=== PATIENT | male | born 2000 | race Caucasian/White ===

== ENCOUNTER 2021-01-22 21:54 | Emergency (ER) | payer SELFPAY ==
--- NOTE | 2021-01-22 22:43 | EDM.PDOC ---
ED HPI GENERAL MEDICAL PROBLEM - General Chief Complaint: Gastrointestinal Problem Stated Complaint: N/V Time Seen by Provider: 01/22/21 22:30 Source of Information: Reports: Patient - History of Present Illness INITIAL COMMENTS - FREE TEXT/NARRATIVE: 20-year-old gentleman came to the emergency department due to a several hour history of nausea, vomiting, abdominal pain. He states that he was in his no rmal state of health yesterday and had no complaints. He does not know of any sick contacts or any reason why he would have his nausea and vomiting. Patient is not vaccinated against COVID-19. Patient was found to have a mild increase in temperature at 99.7 degrees on admission/initial vitals to the emergency department. He has not tried anything in particular to try to alleviate his symptoms. He denies cough, congestion, chest pain, shortness of breath, change in bowel or bladder habits. - Related Data Allergies Allergy/AdvReac Type Severity Reaction Status Date / Time No Known Allergies Allergy Verified 01/22/21 22:12 Past Medical History Musculoskeletal History: Reports: Fracture Other Musculoskeletal History: hx fx R wrist Neurological History: Reports: Concussion Psychiatric History: Reports: ADHD, Bipolar Social & Family History - Family History Family Medical History: No Pertinent Family History - Tobacco Use Tobacco Use Status *Q: Current Every Day Tobacco User Years of Tobacco use: 1 Packs/Tins Daily: 0.1 - Caffeine Use Caffeine Use: Reports: Energy Drinks, Soda - Recreational Drug Use Recreational Drug Use: No ED ROS GENERAL - Review of Systems Review Of Systems: See Below Constitutional: Reports: Weakness, Fatigue HEENT: Reports: No Symptoms Respiratory: Reports: No Symptoms Cardiovascular: Reports: No Symptoms Endocrine: Reports: No Symptoms GI/Abdominal: Reports: Abdominal Pain, Nausea, Vomiting : Reports: No Symptoms Musculoskeletal: Reports: Joint Pain, Muscle Pain Skin: Reports: No Symptoms Neurological: Reports: Weakness Psychiatric: Reports: No Symptoms Hematologic/Lymphatic: Reports: No Symptoms Immunologic: Reports: No Symptoms ED EXAM, GI/ABD - Physical Exam Exam: See Below Exam Limited By: Intoxication General Appearance: Alert, No Apparent Distress Throat/Mouth: Normal Oropharynx Head: Atraumatic, Normocephalic Neck: Lymphadenopathy (R). No: Lymphadenopathy (L) Respiratory/Chest: No Respiratory Distress, Lungs Clear Cardiovascular: Regular Rate, Rhythm GI/Abdominal Exam: Normal Bowel Sounds, Soft, Non-Tender Back Exam: Normal Inspection Extremities: Normal Inspection Neurological: Alert, Oriented, CN II-XII Intact, Normal Cognition, Normal Gait Psychiatric: Anxious Skin Exam: Warm, Dry Course - Vital Signs Text/Narrative:: Review of lab work shows no leukocytosis, no electrolyte abnormalities, Covid and influenza are negative. Last Recorded V/S: Last Vital Signs Temp 37.7 C 01/22/21 22:09 Pulse 92 01/22/21 22:09 Resp 18 01/22/21 22:09 BP 146/48 H 01/22/21 22:09 Pulse Ox 98 01/22/21 22:09 - Orders/Labs/Meds Orders: Active Orders 24 hr Category Date Time Status Isolation [COMM] Routine Oth 01/22/21 22:35 Ordered Labs: Laboratory Tests 01/22/21 01/22/21 01/22/21 Range/Units 22:34 22:50 22:50 WBC 9.0 (3.2-10.1) x10-3/uL RBC 5.14 (3.90-5.90) x10(6)uL Hgb 15.1 (12.9-17.7) g/dL Hct 44.9 (38.3-50.1) % MCV 87.5 (80.8-98.7) fL MCH 29.5 (27.0-33.3) pg MCHC 33.7 (28.7-35.3) g/dL RDW 13.0 (12.4-15.0) % Plt Count 209 (117-477) x10(3)uL MPV 8.8 (6.7-11.0) fL Neut % (Auto) 54.5 (40.3-71.8) % Lymph % (Auto) 36.6 (15.8-45.3) % [place] % (Auto) 5.0 L (5.5-15.2) % Eos % (Auto) 3.2 (0.1-6.8) % Baso % (Auto) 0.7 (0.3-3.8) % Neut # (Auto) 4.9 (1.7-6.9) x10-3/uL Lymph # (Auto) 3.3 (0.5-4.5) x10-3/uL [place] # (Auto) 0.4 (0.0-1.2) x10-3/uL Eos # (Auto) 0.3 (0.0-0.6) x10-3/uL Baso # (Auto) 0.1 (0.0-0.3) x10-3/uL Sodium 138 (135-145) mmol/L Potassium 4.5 (3.5-5.3) mmol/L Chloride 104 (100-110) mmol/L Carbon Dioxide 29 (21-32) mmol/L BUN 14 (7-18) mg/dL Creatinine 0.9 (0.70-1.30) mg/dL Est Cr Clr Drug Dosing 126.00 mL/min Estimated GFR (MDRD) > 60 (>60) BUN/Creatinine Ratio 15.6 (9-20) Glucose 101 (80-116) mg/dL Calcium 8.9 (8.6-10.2) mg/dL Total Bilirubin 0.4 (0.1-1.3) mg/dL AST 14 (5-25) IU/L ALT 18 (12-36) U/L Alkaline Phosphatase 90 (56-112) IU/L Total Protein 7.5 (6.0-8.0) g/dL Albumin 4.4 (3.5-5.2) g/dL Globulin 3.1 g/dL Albumin/Globulin Ratio 1.4 SARS-CoV-2 RNA (FELI) Negative (NEGATIVE) Departure - Departure Time of Disposition: 00:00 Disposition: Home, Self-Care 01 Condition: Good Clinical Impression: Viral gastroenteritis - Discharge Information *PRESCRIPTION DRUG MONITORING PROGRAM REVIEWED*: Not Applicable *COPY OF PRESCRIPTION DRUG MONITORING REPORT IN PATIENT SAUL: Not Applicable Instructions: Viral Gastroenteritis, Adult, [id number], Dehydration, Adult, [id number] Forms: ED Department Discharge Additional Instructions: Patient likely has viral gastroenteritis. He is encouraged to drink plenty of fluids and get plenty of rest. He is encouraged to follow-up with his primary care physician. Sepsis Event Note (ED) - Evaluation Sepsis Screening Result: No Definite Risk - Focused Exam Vital Signs: Vital Signs Temp Pulse Resp BP Pulse Ox 01/22/21 22:09 37.7 C 92 18 146/48 H 98 - My Orders Last 24 Hours: My Active Orders 01/22/21 22:35 Isolation [COMM] Routine - Assessment/Plan Last 24 Hours: My Active Orders 01/22/21 22:35 Isolation [COMM] Routine
== END 2021-01-23 00:10 | disposition home or self-care (01) ==
LOC: FB.ED 21:54
DX: A08.4 Viral intestinal infection, unspecified (principal); Z72.0 Tobacco use; Z20.822 Contact with and (suspected) exposure to COVID-19
CPT/HCPCS: 36415; 80053; 85025; 87804; 87804-59; 99284; U0002